=== PATIENT | female | born 1935 | race Asian ===

== ENCOUNTER 2018-08-13 15:24 | Inpatient (IN) | payer MEDICARE, OTHER ==
[2018-08-13 18:42] LABS: ADD MAN DIFF? NO
[2018-08-13 18:44] LABS: BASOPHILS % 0.4 % (0.0-2.0); EOSINOPHILS % 0.4 % (0.0-7.0); HEMATOCRIT 39.2 % (37.0-47.0); HEMOGLOBIN 12.6 g/dl (12.0-16.0); LYMPHOCYTES # 1.8 10^3/ul (0.8-2.9); LYMPHOCYTES % 27.3 % (15.0-51.0); MEAN CORPUSCULAR HGB CONC 32.1 g/dl (32.0-37.0); MEAN PLATELET VOLUME 9.4 fl (7.4-10.4); MONOCYTE # 0.4 10^3/ul (0.3-0.9); MONOCYTES % 5.2 % (0.0-11.0); NEUTROPHIL # 4.4 10^3/ul (1.6-7.5); NEUTROPHILS % 66.3 % (39.0-77.0); PLATELET COUNT 149 10^3/UL (140-415); RED BLOOD COUNT 4.84 10^6/ul (4.20-5.40); RED CELL DISTRIBUTION WIDTH 13.4 % (11.5-14.5)
[2018-08-13 18:44] LABS: WHITE BLOOD COUNT 6.7 10^3/ul (4.8-10.8)
[2018-08-13 18:49] LABS: ADD UMIC YES; UR ASCORBIC ACID NEGATIVE (NEGATIVE); UR BACTERIA MANY /HPF (NONE SEEN); UR BILIRUBIN (Dip) NEGATIVE (NEGATIVE); UR BLOOD (Dip) NEGATIVE (NEGATIVE); UR CLARITY CLOUDY (CLEAR); UR COLOR AMBER (YELLOW); UR GLUCOSE (Dip) NEGATIVE (NEGATIVE); UR KETONES (Dip) TRACE mg/dL (NEGATIVE); UR LEUKOCYTE ESTERASE (Dip) 1+ Leu/ul (NEGATIVE); UR NITRITE (Dip) NEGATIVE (NEGATIVE); UR RBC 8 /HPF (0-5); UR SPECIFIC GRAVITY (Dip) 1.023 (1.003-1.030); UR TOTAL PROTEIN (Dip) 3+ mg/dl (NEGATIVE); UR UROBILINOGEN (Dip) 1+ mg/dL (NEGATIVE); UR WBC 102 /HPF (0-5)
[2018-08-13] MEDS: SOD CHLORIDE 0.9% 1,000 ML IV (18:54)
[2018-08-13] MEDS: KETOROLAC 15 MG INJ IV (18:55)
[2018-08-13] MEDS: CEFTRIAXONE 1 GM/50 ML (PMX) 50 ML IVPB (18:55)
[2018-08-13] MEDS: TETRACAINE 0.5% 4 ML OPH RIGHT EYE (19:25)
[2018-08-13 19:42] LABS: ALANINE AMINOTRANSFERASE 20 IU/L (13-69); ALBUMIN 3.5 g/dl (3.3-4.9); ALBUMIN/GLOBULIN RATIO 1.12; ALKALINE PHOSPHATASE 102 IU/L (42-121); ANION GAP 11 (5-13); ASPARTATE AMINO TRANSFERASE 28 IU/L (15-46); BILIRUBIN,INDIRECT 0.3 mg/dl (0-1.1); BILIRUBIN,TOTAL 0.3 mg/dl (0.2-1.3); BLOOD UREA NITROGEN 45 mg/dl (7-20); CALCIUM 8.8 mg/dl (8.4-10.2); CARBON DIOXIDE 24 mmol/L (21-31); CHLORIDE 104 mmol/L (97-110); CREATININE 3.02 mg/dl (0.44-1.00); GLUCOSE 184 mg/dl (70-220); LIPASE 95 U/L (23-300); POTASSIUM 4.6 mmol/L (3.5-5.1); SODIUM 139 mmol/L (135-144); TOTAL PROTEIN 6.6 g/dl (6.1-8.1)
[2018-08-13] MEDS: ACYCLOVIR 500 MG in DEXTROSE 5% 100 ML IVPB (19:42)
[2018-08-13 20:08] LABS: TROPONIN-I < 0.012 ng/ml (0.000-0.120)
[2018-08-13] MEDS ORDERED: NACL 0.9% 3 ML SYG IV (21:30)
[2018-08-13] MEDS ORDERED: DOCUSATE SODIUM 100 MG CAP PO (21:30)
[2018-08-13] MEDS ORDERED: BISACODYL (EC) 5 MG TAB PO (21:30)
[2018-08-13] MEDS ORDERED: ACETAMINOPHEN 325 MG TAB PO (21:30)
[2018-08-13] MEDS ORDERED: NON-FORMULARY/PATIENT OWN MED (Olmesartan Medoxomil (Benicar) 40 MG) PO (21:30)
[2018-08-13] MEDS: METOPROLOL 100 MG TAB PO (21:52)
[2018-08-13] MEDS: LOSARTAN 50 MG TAB PO (21:56)
[2018-08-13] MEDS: LORAZEPAM 0.5 MG TAB PO (22:22)
[2018-08-14] MEDS: AMOXICILLIN 500 MG CAP PO ×3 (02:34→22:10)
[2018-08-14] MEDS: CLINDAMYCIN 300 MG CAP PO ×4 (02:35→22:10)
[2018-08-14] MEDS: CIPROFLOXACIN 0.3% 2.5 ML OPH RIGHT EYE ×5 (02:35→22:01)
[2018-08-14] MEDS: hydrALAzine 20 MG INJ IV (03:36)
[2018-08-14] MEDS: HYDROCODONE/APAP (5/325) TAB PO (03:36)
[2018-08-14] MEDS ORDERED: GLUCOSE GEL 15 GRAM TUBE PO ×2 (04:00)
[2018-08-14] MEDS ORDERED: GLUCOSE GEL 15 GRAM TUBE BUCCAL (04:00)
[2018-08-14] MEDS ORDERED: DEXTROSE 50% 50 ML SYRINGE IV ×2 (04:00)
[2018-08-14] MEDS ORDERED: morphine 2 MG INJ IV (04:00)
[2018-08-14] MEDS ORDERED: GLUCAGON 1 MG INJ IM (04:00)
[2018-08-14] MEDS: LABETALOL HCL 20MG INJ IV (04:19)
[2018-08-14] MEDS: AMLODIPINE 10 MG TAB PO ×2 (04:20→10:20)
[2018-08-14] MEDS: ONDANSETRON 4 MG INJ IV (04:29)
[2018-08-14 06:06] LABS: ADD MAN DIFF? NO
[2018-08-14 06:31] LABS: BASOPHILS % 0.5 % (0.0-2.0); EOSINOPHILS % 0.3 % (0.0-7.0); HEMATOCRIT 34.6 % (37.0-47.0); HEMOGLOBIN 11.4 g/dl (12.0-16.0); LYMPHOCYTES # 1.5 10^3/ul (0.8-2.9); LYMPHOCYTES % 24.1 % (15.0-51.0); MEAN CORPUSCULAR HEMOGLOBIN 26.7 pg (29.0-33.0); MEAN CORPUSCULAR HGB CONC 32.9 g/dl (32.0-37.0); MEAN PLATELET VOLUME 10.1 fl (7.4-10.4); MONOCYTE # 0.6 10^3/ul (0.3-0.9); MONOCYTES % 8.8 % (0.0-11.0); NEUTROPHIL # 4.2 10^3/ul (1.6-7.5); NEUTROPHILS % 65.7 % (39.0-77.0); PLATELET COUNT 147 10^3/UL (140-415); RED BLOOD COUNT 4.27 10^6/ul (4.20-5.40); RED CELL DISTRIBUTION WIDTH 13.4 % (11.5-14.5)
[2018-08-14 06:31] LABS: WHITE BLOOD COUNT 6.3 10^3/ul (4.8-10.8)
[2018-08-14 06:38] LABS: ALANINE AMINOTRANSFERASE 22 IU/L (13-69); ALBUMIN/GLOBULIN RATIO 0.96; ALKALINE PHOSPHATASE 85 IU/L (42-121); ANION GAP 9 (5-13); ASPARTATE AMINO TRANSFERASE 22 IU/L (15-46); BILIRUBIN,INDIRECT 0.2 mg/dl (0-1.1); BILIRUBIN,TOTAL 0.2 mg/dl (0.2-1.3); BLOOD UREA NITROGEN 39 mg/dl (7-20); CALCIUM 7.9 mg/dl (8.4-10.2); CARBON DIOXIDE 20 mmol/L (21-31); CHLORIDE 107 mmol/L (97-110); CHOL/HDL RATIO 6.6 RATIO; CHOLESTEROL 166 mg/dl (100-200); CREATININE 2.41 mg/dl (0.44-1.00); GLUCOSE 144 mg/dl (70-220); HDL CHOLESTEROL 25 mg/dl (33-92); LDL CHOLESTEROL,CALCULATED 114 mg/dl; MAGNESIUM 1.7 mg/dl (1.7-2.5); POTASSIUM 3.7 mmol/L (3.5-5.1); SODIUM 136 mmol/L (135-144); TOTAL PROTEIN 6.1 g/dl (6.1-8.1); TRIGLYCERIDES 137 mg/dl (0-149)
[2018-08-14 06:44] LABS: HEMOGLOBIN A1C 6.5 % (0-5.9)
[2018-08-14] MEDS: INSULIN ASPART [NOVOLOG] 3 ML PEN SC ×4 (07:58→21:00)
[2018-08-14] MEDS ORDERED: HYDROCHLOROTHIAZIDE 12.5 MG CAP PO (09:00)
[2018-08-14] MEDS: METOPROLOL 100 MG TAB PO (10:19)
[2018-08-14] MEDS: ACYCLOVIR 200 MG CAP PO ×2 (10:19→21:58)
[2018-08-14] MEDS: CEFTRIAXONE 1 GM/50 ML (PMX) 50 ML IVPB (17:57)
[2018-08-14] MEDS: METOPROLOL 50 MG TAB PO (22:00)
[2018-08-15] MEDS: ACCU-CHEK XX (02:00)
[2018-08-15] MEDS: CIPROFLOXACIN 0.3% 2.5 ML OPH RIGHT EYE ×3 (05:52→13:42)
[2018-08-15] MEDS ORDERED: ACYCLOVIR 200 MG CAP PO (06:00)
[2018-08-15] MEDS: HYDROCODONE/APAP (5/325) TAB PO (06:03)
[2018-08-15] MEDS: hydrALAzine 20 MG INJ IV (06:05)
[2018-08-15] MEDS: ACYCLOVIR 800 MG TAB PO ×3 (06:40→21:12)
[2018-08-15] MEDS: INSULIN ASPART [NOVOLOG] 3 ML PEN SC ×4 (07:54→21:00)
[2018-08-15 08:33] LABS: ANION GAP 13 (5-13); BLOOD UREA NITROGEN 48 mg/dl (7-20); CARBON DIOXIDE 18 mmol/L (21-31); CHLORIDE 107 mmol/L (97-110); CREATININE 2.78 mg/dl (0.44-1.00); GLUCOSE 113 mg/dl (70-220); POTASSIUM 3.6 mmol/L (3.5-5.1); SODIUM 138 mmol/L (135-144)
[2018-08-15] MEDS: METOPROLOL 100 MG TAB PO (09:22)
[2018-08-15] MEDS: AMLODIPINE 10 MG TAB PO (09:22)
[2018-08-15] MEDS: AMOXICILLIN/CLAV 500 MG TAB PO ×2 (09:45→21:12)
[2018-08-15] MEDS: ONDANSETRON 4 MG INJ IV (13:41)
[2018-08-15 15:11] LABS: ADD UMIC YES; UR ASCORBIC ACID NEGATIVE (NEGATIVE); UR BACTERIA FEW /HPF (NONE SEEN); UR BILIRUBIN (Dip) NEGATIVE (NEGATIVE); UR BLOOD (Dip) NEGATIVE (NEGATIVE); UR CLARITY CLOUDY (CLEAR); UR COLOR YELLOW (YELLOW); UR GLUCOSE (Dip) 1+ mg/dL (NEGATIVE); UR KETONES (Dip) NEGATIVE (NEGATIVE); UR LEUKOCYTE ESTERASE (Dip) 2+ Leu/ul (NEGATIVE); UR MUCUS FEW /HPF (NONE SEEN); UR NITRITE (Dip) NEGATIVE (NEGATIVE); UR NONSQUAMOUS EPITHELIAL CELL 2 /HPF (NONE SEEN); UR RBC 10 /HPF (0-5); UR SPECIFIC GRAVITY (Dip) 1.016 (1.003-1.030); UR SQUAMOUS EPITHELIAL CELL MANY /HPF (FEW); UR TOTAL PROTEIN (Dip) 2+ mg/dl (NEGATIVE); UR UROBILINOGEN (Dip) NEGATIVE (NEGATIVE); UR WBC > 182 /HPF (0-5)
[2018-08-15] MEDS: METOPROLOL 50 MG TAB PO (21:12)
[2018-08-16] MEDS: ACCU-CHEK XX (02:00)
[2018-08-16 06:14] LABS: HEMATOCRIT 37.1 % (37.0-47.0); HEMOGLOBIN 11.9 g/dl (12.0-16.0); MEAN CORPUSCULAR HGB CONC 32.1 g/dl (32.0-37.0); MEAN PLATELET VOLUME 10.2 fl (7.4-10.4); PLATELET COUNT 179 10^3/UL (140-415); RED BLOOD COUNT 4.58 10^6/ul (4.20-5.40); RED CELL DISTRIBUTION WIDTH 13.6 % (11.5-14.5)
[2018-08-16] MEDS: ACYCLOVIR 800 MG TAB PO ×3 (06:25→22:36)
[2018-08-16 06:26] LABS: ADD MAN DIFF? YES; POSITIVE DIFF @See below
[2018-08-16] MEDS: CIPROFLOXACIN 0.3% 2.5 ML OPH RIGHT EYE ×5 (06:26→22:37)
[2018-08-16] MEDS: hydrALAzine 20 MG INJ IV (06:26)
[2018-08-16 07:00] LABS: ANION GAP 12 (5-13); BLOOD UREA NITROGEN 56 mg/dl (7-20); CALCIUM 8.2 mg/dl (8.4-10.2); CARBON DIOXIDE 19 mmol/L (21-31); CHLORIDE 106 mmol/L (97-110); CREATININE 3.19 mg/dl (0.44-1.00); GLUCOSE 102 mg/dl (70-220); POTASSIUM 3.7 mmol/L (3.5-5.1); SODIUM 137 mmol/L (135-144)
[2018-08-16] MEDS: INSULIN ASPART [NOVOLOG] 3 ML PEN SC ×4 (08:00→20:48)
[2018-08-16] MEDS: CEPHALEXIN 500 MG CAP PO ×2 (08:55→20:47)
[2018-08-16] MEDS: AMLODIPINE 10 MG TAB PO (08:56)
[2018-08-16] MEDS: METOPROLOL 100 MG TAB PO (08:56)
[2018-08-16 09:23] LABS: ANISOCYTOSIS 1+ (0-0); BAND NEUTROPHILS % (M) 1 % (0-4); BURR CELLS 1+ (0-0); GIANT THROMBO% (M) 1 % (0-0); LYMPHOCYTES #M 1.7 10^3/ul (0.8-2.9); LYMPHOCYTES % (M) 22 % (15-51); MICROCYTOSIS 1+ (0-0); MONOCYTE #M 0.5 10^3/ul (0.3-0.9); MONOCYTES % (M) 7 % (0-11); PLATELET ESTIMATE NORMAL; POIKILOCYTOSIS 1+ (0-0); POLYCHROMASIA 1+ (0-0); REACTIVE LYMPHOCYTES #M 0.4 10^3/ul (0.0-0.0); REACTIVE LYMPHOCYTES% (M) 6 % (0-0); SEG NEUT #M 5.1 10^3/ul (1.6-7.5); SEGMENTED NEUTROPHILS (M) % 64 % (39-77); SMUDGE%M 23 % (0-0)
[2018-08-16] MEDS: METOPROLOL 50 MG TAB PO (20:48)
[2018-08-17] MEDS: ACCU-CHEK XX (00:22)
[2018-08-17 05:42] LABS: ADD MAN DIFF? NO
[2018-08-17 05:45] LABS: WHITE BLOOD COUNT 10.6 10^3/ul (4.8-10.8)
[2018-08-17 05:45] LABS: BASOPHILS % 0.2 % (0.0-2.0); EOSINOPHILS # 0.1 10^3/ul (0.0-0.5); EOSINOPHILS % 0.6 % (0.0-7.0); HEMATOCRIT 38.8 % (37.0-47.0); HEMOGLOBIN 12.6 g/dl (12.0-16.0); LYMPHOCYTES # 3.3 10^3/ul (0.8-2.9); LYMPHOCYTES % 31.2 % (15.0-51.0); MEAN CORPUSCULAR HEMOGLOBIN 25.8 pg (29.0-33.0); MEAN CORPUSCULAR HGB CONC 32.5 g/dl (32.0-37.0); MEAN CORPUSCULAR VOLUME 79.3 fl (82.0-101.0); MONOCYTE # 0.7 10^3/ul (0.3-0.9); NEUTROPHIL # 6.4 10^3/ul (1.6-7.5); NEUTROPHILS % 60.4 % (39.0-77.0); PLATELET COUNT 203 10^3/UL (140-415); RED BLOOD COUNT 4.89 10^6/ul (4.20-5.40); RED CELL DISTRIBUTION WIDTH 13.7 % (11.5-14.5)
[2018-08-17] MEDS: CIPROFLOXACIN 0.3% 2.5 ML OPH RIGHT EYE ×3 (06:11→17:27)
[2018-08-17] MEDS: ACYCLOVIR 800 MG TAB PO ×2 (06:11→20:55)
[2018-08-17] MEDS: hydrALAzine 20 MG INJ IV (06:12)
[2018-08-17 06:17] LABS: PROTEIN, TOTAL 5.2 g/dL (6.1-8.1)
[2018-08-17 06:30] LABS: ANION GAP 16 (5-13); BLOOD UREA NITROGEN 60 mg/dl (7-20); CALCIUM 8.5 mg/dl (8.4-10.2); CARBON DIOXIDE 19 mmol/L (21-31); CHLORIDE 103 mmol/L (97-110); CREATININE 3.42 mg/dl (0.44-1.00); GLUCOSE 103 mg/dl (70-220); POTASSIUM 3.8 mmol/L (3.5-5.1); SODIUM 138 mmol/L (135-144)
[2018-08-17] MEDS: METOPROLOL 100 MG TAB PO (08:52)
[2018-08-17] MEDS: AMLODIPINE 10 MG TAB PO (08:53)
[2018-08-17] MEDS: CEPHALEXIN 250 MG CAP PO ×2 (08:53→20:56)
[2018-08-17] MEDS: INSULIN ASPART [NOVOLOG] 3 ML PEN SC ×4 (09:01→20:21)
[2018-08-17 18:34] LABS: ADD UMIC YES; UR ASCORBIC ACID NEGATIVE (NEGATIVE); UR BILIRUBIN (Dip) NEGATIVE (NEGATIVE); UR BLOOD (Dip) NEGATIVE (NEGATIVE); UR CLARITY SLIGHTLY CLOUDY (CLEAR); UR COLOR YELLOW (YELLOW); UR GLUCOSE (Dip) 1+ mg/dL (NEGATIVE); UR KETONES (Dip) NEGATIVE (NEGATIVE); UR LEUKOCYTE ESTERASE (Dip) NEGATIVE Leu/ul (NEGATIVE); UR NITRITE (Dip) NEGATIVE (NEGATIVE); UR RBC 0 /HPF (0-5); UR SPECIFIC GRAVITY (Dip) 1.017 (1.003-1.030); UR SQUAMOUS EPITHELIAL CELL FEW /HPF (FEW); UR TOTAL PROTEIN (Dip) 2+ mg/dl (NEGATIVE); UR UROBILINOGEN (Dip) NEGATIVE (NEGATIVE); UR WBC 6 /HPF (0-5)
[2018-08-17 18:55] LABS: CREATININE,URINE RANDOM 123.34 mg/dl (20-320)
[2018-08-17 18:55] LABS: SODIUM,URINE RANDOM 28 mmol/L (30-90)
[2018-08-17] MEDS: METOPROLOL 50 MG TAB PO (20:55)
[2018-08-17 23:22] LABS: ALBUMIN 2.7 g/dL (3.8-4.8); ALPHA-1-GLOBULINS 0.3 g/dL (0.2-0.3); ALPHA-2-GLOBULINS 0.8 g/dL (0.5-0.9); BETA 2 GLOBULINS 0.3 g/dL (0.2-0.5); BETA GLOBULINS 0.3 g/dL (0.4-0.6); GAMMA GLOBULINS 0.8 g/dL (0.8-1.7)
[2018-08-18] MEDS: CIPROFLOXACIN 0.3% 2.5 ML OPH RIGHT EYE ×3 (00:41→12:22)
[2018-08-18] MEDS: ACCU-CHEK XX (02:00)
[2018-08-18 06:04] LABS: ADD MAN DIFF? NO
[2018-08-18 06:13] LABS: WHITE BLOOD COUNT 10.3 10^3/ul (4.8-10.8)
[2018-08-18 06:13] LABS: BASOPHILS % 0.3 % (0.0-2.0); EOSINOPHILS # 0.1 10^3/ul (0.0-0.5); EOSINOPHILS % 0.8 % (0.0-7.0); HEMATOCRIT 37.4 % (37.0-47.0); HEMOGLOBIN 12.3 g/dl (12.0-16.0); LYMPHOCYTES # 3.4 10^3/ul (0.8-2.9); LYMPHOCYTES % 33.3 % (15.0-51.0); MEAN CORPUSCULAR HEMOGLOBIN 25.9 pg (29.0-33.0); MEAN CORPUSCULAR HGB CONC 32.9 g/dl (32.0-37.0); MEAN CORPUSCULAR VOLUME 78.9 fl (82.0-101.0); MEAN PLATELET VOLUME 9.8 fl (7.4-10.4); MONOCYTE # 0.9 10^3/ul (0.3-0.9); MONOCYTES % 8.9 % (0.0-11.0); NEUTROPHIL # 5.8 10^3/ul (1.6-7.5); NEUTROPHILS % 55.9 % (39.0-77.0); PLATELET COUNT 191 10^3/UL (140-415); RED BLOOD COUNT 4.74 10^6/ul (4.20-5.40); RED CELL DISTRIBUTION WIDTH 13.6 % (11.5-14.5)
[2018-08-18 06:31] LABS: MAGNESIUM 2.3 mg/dl (1.7-2.5)
[2018-08-18 06:31] LABS: PHOSPHORUS 5.4 mg/dl (2.5-4.9)
[2018-08-18 06:36] LABS: ANION GAP 10 (5-13); BLOOD UREA NITROGEN 61 mg/dl (7-20); CALCIUM 8.4 mg/dl (8.4-10.2); CARBON DIOXIDE 21 mmol/L (21-31); CHLORIDE 106 mmol/L (97-110); CREATININE 3.11 mg/dl (0.44-1.00); GLUCOSE 97 mg/dl (70-220); POTASSIUM 3.7 mmol/L (3.5-5.1); SODIUM 137 mmol/L (135-144)
[2018-08-18] MEDS: INSULIN ASPART [NOVOLOG] 3 ML PEN SC ×2 (08:00→12:00)
[2018-08-18] MEDS: ACYCLOVIR 800 MG TAB PO (08:23)
[2018-08-18] MEDS: AMLODIPINE 10 MG TAB PO (08:23)
[2018-08-18] MEDS: CEPHALEXIN 250 MG CAP PO (08:23)
[2018-08-18] MEDS: METOPROLOL 100 MG TAB PO (08:24)
[2018-08-19 17:21] LABS: CREATININE, RANDOM URINE 124 mg/dL (20-275); CREATININE, RANDOM URINE 126 mg/dL (20-275); MICROALBUMIN 119.5 mg/dL; MICROALBUMIN/CREATININE RATIO 964 (<30); PROTEIN/CREATININE RATIO 1595 mg/g creat (21-161)
== END 2018-08-18 17:29 | disposition home health service (06) | DRG 866 ==
LOC: E/R 15:24 → 6WM 20:53
DX: B02.8 Zoster with other complications (principal); L03.213 Periorbital cellulitis; N17.9 Acute kidney failure, unspecified; N39.0 Urinary tract infection, site not specified; I16.0 Hypertensive urgency; I12.9 Hypertensive chronic kidney disease with stage 1 through stage 4 chronic kidney disease, or unspecified chronic kidney disease; E11.22 Type 2 diabetes mellitus with diabetic chronic kidney disease; N18.9 Chronic kidney disease, unspecified; D32.0 Benign neoplasm of cerebral meninges; E86.0 Dehydration; H10.89 Other conjunctivitis; B96.20 Unspecified Escherichia coli [E. coli] as the cause of diseases classified elsewhere
CPT/HCPCS: 36415; 70450; 70486; 70553; 71045; 76775; 80048; 80053; 80061; 81001; 81003; 82043; 82570; 82962; 83036; 83690; 83735; 84100; 84155; 84156; 84165; 84166; 84300; 84443; 84484; 85025; 86320; 86325; 87070; 87081; 87086; 93005; 93306; 96374; 96375; 99291-25